=== PATIENT | female | born 1960 | race Hispanic/Latino ===

== ENCOUNTER 2022-07-17 16:00 | Outpatient (RCR) | payer OTHER | END 2022-07-20 | LOC: OT 16:00 | PROVIDERS: ATTEND Specialist | DX: S42.291D Other displaced fracture of upper end of right humerus, subsequent encounter for fracture with routine healing (principal); M25.511 Pain in right shoulder; M25.611 Stiffness of right shoulder, not elsewhere classified; R53.1 Weakness ==

== ENCOUNTER 2022-08-16 15:00 | Outpatient (RCR) | payer OTHER | END 2022-08-20 | LOC: OT 15:00 | PROVIDERS: ATTEND Specialist | DX: S42.291D Other displaced fracture of upper end of right humerus, subsequent encounter for fracture with routine healing (principal); M62.81 Muscle weakness (generalized); M25.511 Pain in right shoulder; M25.611 Stiffness of right shoulder, not elsewhere classified ==

== ENCOUNTER 2022-09-17 16:00 | Outpatient (RCR) | payer OTHER | END 2022-09-19 | LOC: OT 16:00 | PROVIDERS: ATTEND Specialist | DX: S42.391A Other fracture of shaft of right humerus, initial encounter for closed fracture (principal) ==